=== PATIENT | female | born 1940 | race Caucasian/White ===

== ENCOUNTER 2018-08-14 18:56 | Emergency (ER) | payer MEDICARE ==
[~2018-08-14] VITALS: Ht 157.5 cm; Wt 85.1 kg
[~2018-08-14 18:56] MED LIST: AMOX1TAB64 PO; APIX5TAB PO; DOXY100T PO; GABA300C10 PO; HYDR25TA6 PO; LISI-167 PO; METO25TA35 PO; PRED10TA PO
--- NOTE | 2018-08-14 19:23 | NUR ---
PT TO ED FOR PERSISTENT INTERMITTENT COLD AND COUGH SINCE MAY. RECENTLY ON ABX AND PREDNISONE. WHEEZES THROUGHOUT LUNGS. CONNECTED TO MONITORS. VSS ON RA. MD ASSESSMENT COMPLETE. LABS DRAWN. PT TO XRAY AT THIS TIME. AWAITING RESULTS.
[2018-08-14 19:24] LABS: BASOPHILS # (AUTO) 0.06 x10^3/uL (0-0.1); BASOPHILS % (AUTO) 1 % (0-1); EOSINOPHILS # (AUTO) 0.83 x10^3/uL (0-0.4); EOSINOPHILS % (AUTO) 9 % (1-7); LYMPHOCYTES # (AUTO) 2.52 x10^3/uL (1-3.4); LYMPHOCYTES % (AUTO) 28 % (22-44); MD NO; MEAN CORPUSCULAR HEMOGLOBIN 33.3 pg (27.0-34.8); MEAN CORPUSCULAR HGB CONC 34.1 g/dL (32.4-35.8); MEAN CORPUSCULAR VOLUME 97.8 fL (80-100); MONOCYTES # (AUTO) 1.26 x10^3/uL (0.2-0.8); MONOCYTES % (AUTO) 14 % (2-9); NEUTROPHILS # (AUTO) 4.26 x10^3/uL (1.8-6.8); NEUTROPHILS % (AUTO) 48 % (42-75); PLATELET COUNT 298 x10^3/uL (130-400); RED CELL DISTRIBUTION WIDTH 15.4 % (9.6-15.2)
[2018-08-14] MEDS ORDERED: ALBUTEROL/IPRATROPIUM 2.5MG/0.5MG, 3 ML ONE ×2 (19:37→20:34)
[2018-08-14 19:39] LABS: ALBUMIN 3.2 g/dL (3.4-5.0); ANION GAP 5 mmol/L (5-15); CALCIUM 8.7 mg/dL (8.5-10.1); CHLORIDE 108 mmol/L (98-107); CREATININE 0.81 mg/dL (0.55-1.02)
--- NOTE | 2018-08-14 19:42 | NUR ---
RT TO BEDSIDE
[2018-08-14] MEDS: ALBUTEROL/IPRATROPIUM 2.5MG/0.5MG, 3 ML NPPB SCH ×2 (19:45→20:39)
[2018-08-14 20:36] VITALS: BP 155/56
--- NOTE | 2018-08-14 20:36 | NUR ---
rt to bedside for second tx. vss. no needs at this time. call light within reach.
== END 2018-08-14 21:18 | disposition home or self-care (01) ==
LOC: ED 21:05
DX: J06.9 Acute upper respiratory infection, unspecified (principal); J98.01 Acute bronchospasm; I10 Essential (primary) hypertension; J44.9 Chronic obstructive pulmonary disease, unspecified; Z87.01 Personal history of pneumonia (recurrent); Z87.891 Personal history of nicotine dependence
CPT/HCPCS: 36415; 71046; 80048; 82040; 83880; 85025; 93005; 94640; 99284; J7512; J7620

== ENCOUNTER 2018-08-24 21:14 | Emergency (ER) | payer MEDICARE ==
[~2018-08-24] VITALS: Ht 157.5 cm; Wt 82.4 kg
[2018-08-24] MEDS ORDERED: LOSARTAN PO (21:44)
[2018-08-24] MEDS ORDERED: ASPI-496 PO (21:44)
[2018-08-24] MEDS ORDERED: ALBUTEROL/IPRATROPIUM 2.5MG/0.5MG, 3 ML NPPB ONE ×2 (22:00→23:00)
[2018-08-24 22:07] LABS: BASOPHILS # (AUTO) 0.04 x10^3/uL (0-0.1); BASOPHILS % (AUTO) 0 % (0-1); EOSINOPHILS # (AUTO) 1.31 x10^3/uL (0-0.4); EOSINOPHILS % (AUTO) 12 % (1-7); LYMPHOCYTES # (AUTO) 3.39 x10^3/uL (1-3.4); LYMPHOCYTES % (AUTO) 31 % (22-44); MD NO; MEAN CORPUSCULAR HEMOGLOBIN 31.6 pg (27.0-34.8); MEAN CORPUSCULAR HGB CONC 32.4 g/dL (32.4-35.8); MEAN CORPUSCULAR VOLUME 97.7 fL (80-100); MEAN PLATELET VOLUME 7.9 fL (7.4-10.4); MONOCYTES # (AUTO) 1.19 x10^3/uL (0.2-0.8); MONOCYTES % (AUTO) 11 % (2-9); NEUTROPHILS # (AUTO) 4.93 x10^3/uL (1.8-6.8); NEUTROPHILS % (AUTO) 45 % (42-75); PLATELET COUNT 295 x10^3/uL (130-400); RED BLOOD COUNT 4.12 x10^6/uL (3.82-5.3); RED CELL DISTRIBUTION WIDTH 15.7 % (9.6-15.2)
[2018-08-24 22:20] LABS: ALANINE AMINOTRANSFERASE 40 U/L (12-78); ALBUMIN 3.4 g/dL (3.4-5.0); ANION GAP 4 mmol/L (5-15); CALCIUM 8.6 mg/dL (8.5-10.1); CHLORIDE 111 mmol/L (98-107); CREATININE 0.85 mg/dL (0.55-1.02)
[2018-08-24 22:24] LABS: ALKALINE PHOSPHATASE 99 U/L (45-117); BILIRUBIN,TOTAL 0.5 mg/dL (0.2-1.0); TOTAL PROTEIN 6.1 g/dL (6.4-8.2); TROPONIN I < 0.015 ng/mL (0.000-0.045)
[2018-08-24] MEDS ORDERED: ALBUTEROL/IPRATROPIUM 2.5MG/0.5MG, 3 ML ONE (22:30)
[2018-08-24] MEDS ORDERED: ALBUTEROL SULFATE 2.5 MG/3 ML NPPB ONE (23:20)
--- NOTE | 2018-08-24 23:21 | NUR ---
POC DISCUSSED. WOB HAS NOTABLY DECREASED. PT SPEAKING FULL SENTENCES. AWAITING REPEAT RT TX AT THIS TIME. PT DENIES FURTHER NEEDS.
[2018-08-24] MEDS ORDERED: BUDESONIDE 0.5 MG/2 ML INHA INH ONE (23:30)
--- NOTE | 2018-08-24 23:49 | NUR ---
REFERRAL FOR HOME NEBULIZER FAXED TO [facility] PER PT REQUEST. POC DISCUSSED. AT THIS TIME WAITING REPEAT RT TREATMENT AND THEN DC. PT DENIES FURTHER NEEDS AT THIS TIME.
[2018-08-24] MEDS ORDERED: BUDESONIDE 0.5 MG/2 ML INHA ONE (23:54)
[2018-08-24] MEDS ORDERED: ALBUTEROL SULFATE 2.5MG/0.5ML ONE (23:55)
[2018-08-25 00:12] VITALS: BP 128/74
== END 2018-08-25 00:20 | disposition home or self-care (01) ==
LOC: ED 22:27
DX: J44.1 Chronic obstructive pulmonary disease with (acute) exacerbation (principal); R06.00 Dyspnea, unspecified; I48.91 Unspecified atrial fibrillation; I10 Essential (primary) hypertension
CPT/HCPCS: 36415; 71045; 80053; 84484; 85025; 93005; 94640; 99284; J7512; J7613; J7620; J7626

== ENCOUNTER 2018-10-24 05:55 | Inpatient (IN) | payer MEDICARE ==
[~2018-10-24] VITALS: Ht 152.4 cm; Wt 85.5 kg
[~2018-10-24 05:55] MED LIST changes: +ASPI-496 PO; +LOSARTAN PO
[2018-10-24] MEDS ORDERED: ALBUTEROL/IPRATROPIUM 2.5MG/0.5MG, 3 ML ONE ×2 (06:12→09:59)
--- NOTE | 2018-10-24 06:13 | NUR ---
PT PRESENTED WITH C/ SOB WORSE SINCE YESTERDAY. PT ONLY ABLE TO SPEAK TWO WORD SENTENCES. AUDIBLE WHEEZING PRESENT. MONITORS APPLIED, SIDERAILS UP X2, CALL LIGHT WITHIN REACH.
--- NOTE | 2018-10-24 06:14 | NUR ---
RT AT PT'S BEDSIDE
[2018-10-24] MEDS ORDERED: ALBUTEROL SULFATE 2.5 MG/3 ML ONE (06:20)
[2018-10-24] MEDS ORDERED: methylPREDNISolone SOD SUCC 125 MG/2 ML ONE (06:20)
[2018-10-24] MEDS ORDERED: SODIUM CHLORIDE FLUSH 10ML SYR IVF ONE (06:30)
[2018-10-24] MEDS ORDERED: methylPREDNISolone SOD SUCC 125 MG/2 ML IVP ONE (06:30)
[2018-10-24] MEDS ORDERED: ALBUTEROL/IPRATROPIUM 2.5MG/0.5MG, 3 ML NPPB ONE (06:30)
[2018-10-24 06:45] LABS: BASOPHILS # (AUTO) 0.02 x10^3/uL (0-0.1); BASOPHILS % (AUTO) 0 % (0-1); EOSINOPHILS # (AUTO) 0.73 x10^3/uL (0-0.4); EOSINOPHILS % (AUTO) 7 % (1-7); LYMPHOCYTES # (AUTO) 1.86 x10^3/uL (1-3.4); LYMPHOCYTES % (AUTO) 18 % (22-44); MD NO; MEAN CORPUSCULAR HEMOGLOBIN 31.9 pg (27.0-34.8); MEAN CORPUSCULAR HGB CONC 32.7 g/dL (32.4-35.8); MEAN CORPUSCULAR VOLUME 97.5 fL (80-100); MEAN PLATELET VOLUME 7.9 fL (7.4-10.4); MONOCYTES # (AUTO) 0.93 x10^3/uL (0.2-0.8); MONOCYTES % (AUTO) 9 % (2-9); NEUTROPHILS # (AUTO) 6.94 x10^3/uL (1.8-6.8); NEUTROPHILS % (AUTO) 66 % (42-75); PLATELET COUNT 293 x10^3/uL (130-400); RED BLOOD COUNT 4.22 x10^6/uL (3.82-5.3)
[2018-10-24 06:57] LABS: ALANINE AMINOTRANSFERASE 27 U/L (12-78); ALBUMIN 3.7 g/dL (3.4-5.0); ANION GAP 4 mmol/L (5-15); CALCIUM 8.9 mg/dL (8.5-10.1); CHLORIDE 108 mmol/L (98-107); CREATININE 0.88 mg/dL (0.55-1.02)
--- NOTE | 2018-10-24 06:58 | NUR ---
RECEIVED REPORT AND ASSUMED PT. CARE. PT. REMAINS MONITORED WITH STABLE VITALS. SIDERAILS ARE UP X 2 WITH THE CALL LIGHT IN PLACE. PT. WAS GIVEN ICE CHIPS FOR COMFORT. PT. REMAINS ON THE VAPOTHERM AT 20 LITERS AT 40%. RESP ARE EUPNEIC WITH SATS 98%.
[2018-10-24 07:01] LABS: ALKALINE PHOSPHATASE 111 U/L (45-117); BILIRUBIN,TOTAL 0.5 mg/dL (0.2-1.0); TOTAL PROTEIN 6.5 g/dL (6.4-8.2); TROPONIN I < 0.015 ng/mL (0.000-0.045)
--- NOTE | 2018-10-24 08:08 | NUR ---
PT. REMAINS MONITORED AND IS RESTING WITHOUT CONCERNS AT THIS TIME. RESP EUPNEIC. HOB IS ELEVATED GREATER THAN 30 DEGREES. SIDERAILS REMAIN UP X 2 WITH THE CALL LIGHT IN PLACE.
--- NOTE | 2018-10-24 08:53 | NUR ---
PT. IS BEING WEANED FROM THE OPTI-LUIS.
--- NOTE | 2018-10-24 09:58 | NUR ---
REPORT WAS GIVEN TO FLAVIO HERRERA. PT. IS READY FOR TRANSPORT TO THE FLOOR.
--- NOTE | 2018-10-24 10:01 | NUR ---
PT. IS RECEIVING A BREATHING TX AT THIS TIME. VSS.
[2018-10-24] MEDS ORDERED: CYCLOBENZAPRINE 10 MG TABLET PO PRN (10:30)
[2018-10-24] MEDS: methylPREDNISolone SOD SUCC 125 MG/2 ML IVPush SCH ×3 (10:30→22:42)
[2018-10-24] MEDS ORDERED: GUAIFENESIN/COD200MG-20MG/10ML LIQUID PO PRN (10:30)
[2018-10-24] MEDS ORDERED: ONDANSETRON 2MG/ML, 2ML IVPush PRN (10:30)
[2018-10-24] MEDS ORDERED: hydrALAzine 20 MG/ML, 1ML IVPush PRN (10:30)
[2018-10-24] MEDS ORDERED: ACETAMINOPHEN 325 MG TABLET PO PRN (10:30)
[2018-10-24] MEDS ORDERED: DOCUSATE 100 MG CAPSULE PO PRN (10:30)
[2018-10-24 10:50] VITALS: BP 99/67
[2018-10-24] MEDS ORDERED: ALBUTEROL/IPRATROPIUM 2.5MG/0.5MG, 3 ML NPPB PRN (11:30)
[2018-10-24] MEDS: ENOXAPARIN 40 MG/0.4 ML SQ SCH (11:39)
[2018-10-24] MEDS ORDERED: FUROSEMIDE 40 MG/4 ML IV ONE (13:30)
[2018-10-24 13:40] VITALS: BP 113/68
[2018-10-24] MEDS: ALBUTEROL/IPRATROPIUM 2.5MG/0.5MG, 3 ML NPPB SCH ×2 (14:44→20:00)
[2018-10-24] MEDS: METOPROLOL TARTRATE 25 MG TABLET PO SCH (20:11)
[2018-10-24] MEDS: ASPIRIN 81 MG TABLET EC PO SCH (20:11)
[2018-10-24 20:12] VITALS: BP 109/73
[2018-10-25 02:05] VITALS: BP 112/69
[2018-10-25] MEDS: methylPREDNISolone SOD SUCC 125 MG/2 ML IVPush SCH (05:09)
[2018-10-25 06:17] LABS: BASOPHILS # (AUTO) 0.01 x10^3/uL (0-0.1); BASOPHILS % (AUTO) 0 % (0-1); EOSINOPHILS # (AUTO) 0.05 x10^3/uL (0-0.4); EOSINOPHILS % (AUTO) 0 % (1-7); LYMPHOCYTES % (AUTO) 9 % (22-44); MD NO; MEAN CORPUSCULAR HEMOGLOBIN 33.1 pg (27.0-34.8); MEAN CORPUSCULAR HGB CONC 33.7 g/dL (32.4-35.8); MEAN CORPUSCULAR VOLUME 98.1 fL (80-100); MEAN PLATELET VOLUME 8.5 fL (7.4-10.4); MONOCYTES # (AUTO) 0.47 x10^3/uL (0.2-0.8); MONOCYTES % (AUTO) 4 % (2-9); NEUTROPHILS # (AUTO) 9.56 x10^3/uL (1.8-6.8); NEUTROPHILS % (AUTO) 86 % (42-75); PLATELET COUNT 283 x10^3/uL (130-400); RED BLOOD COUNT 3.97 x10^6/uL (3.82-5.3); RED CELL DISTRIBUTION WIDTH 14.1 % (9.6-15.2)
[2018-10-25 06:26] LABS: ANION GAP 5 mmol/L (5-15); CALCIUM 9.1 mg/dL (8.5-10.1); CHLORIDE 107 mmol/L (98-107); CREATININE 0.79 mg/dL (0.55-1.02)
[2018-10-25] MEDS: ALBUTEROL/IPRATROPIUM 2.5MG/0.5MG, 3 ML NPPB SCH ×4 (07:00→19:24)
[2018-10-25 07:11] VITALS: BP 112/72
[2018-10-25] MEDS: LOSARTAN 25MG TABLET PO SCH (09:28)
[2018-10-25] MEDS: METOPROLOL TARTRATE 25 MG TABLET PO SCH ×2 (09:29→20:02)
[2018-10-25] MEDS ORDERED: FUROSEMIDE 40 MG/4 ML IV ONE (11:00)
[2018-10-25] MEDS: ENOXAPARIN 40 MG/0.4 ML SQ SCH (11:44)
[2018-10-25 14:09] VITALS: BP 110/68
[2018-10-25] MEDS: methylPREDNISolone SOD SUCC 40 MG/ML IVPush SCH (17:59)
[2018-10-25 18:39] VITALS: BP 103/66
[2018-10-25] MEDS: ASPIRIN 81 MG TABLET EC PO SCH (20:02)
[2018-10-26 01:01] VITALS: BP 101/62
[2018-10-26] MEDS: methylPREDNISolone SOD SUCC 40 MG/ML IVPush SCH (02:25)
[2018-10-26 07:48] VITALS: BP 124/79
[2018-10-26] MEDS: METOPROLOL TARTRATE 25 MG TABLET PO SCH (08:03)
[2018-10-26] MEDS: ASPIRIN 81 MG TABLET EC PO SCH (08:04)
[2018-10-26] MEDS: LOSARTAN 25MG TABLET PO SCH (08:05)
[2018-10-26] MEDS ORDERED: PRED10TA PO (08:12)
[2018-10-26] MEDS ORDERED: LOSA25TA12 PO (08:12)
[2018-10-26] MEDS ORDERED: ALBU8.5H8 INH (08:12)
[2018-10-26] MEDS ORDERED: Guaifenesin/Cod200mg-20MG/10ML PO (08:12)
[2018-10-26] MEDS ORDERED: BENZ100C PO (10:09)
[2018-10-26] MEDS: ENOXAPARIN 40 MG/0.4 ML SQ SCH (10:30)
== END 2018-10-26 12:18 | disposition home or self-care (01) | DRG 189 ==
LOC: ED 07:11 → EDIP 08:56 → 3NE 10:28
PROVIDERS: ADMIT Internal Medicine; ATTEND Internal Medicine
DX: J96.01 Acute respiratory failure with hypoxia (principal); G47.30 Sleep apnea, unspecified; I10 Essential (primary) hypertension; I48.91 Unspecified atrial fibrillation; Z66 Do not resuscitate; Z82.3 Family history of stroke; Z82.49 Family history of ischemic heart disease and other diseases of the circulatory system; Z87.891 Personal history of nicotine dependence; Z90.710 Acquired absence of both cervix and uterus; Z99.81 Dependence on supplemental oxygen; J43.9 Emphysema, unspecified; M19.90 Unspecified osteoarthritis, unspecified site
CPT/HCPCS: 36415; 71045; 80048; 80053; 83735; 83880; 84484; 85025; 93005; 93970; 94640; G0378; J1650; J1940; J7620; J2920; J2930; J7512